=== PATIENT | female | born 1995 | race Caucasian/White ===

== ENCOUNTER → 2017-03-01 | Outpatient (CLI) | payer OTHER ==
[2017-03-01 17:08] LABS: BASO % 0.4 %; BASO ABS # 0.04 K/uL (0-0.2); COMPLETE YES; EOS % 1.1 %; HEMATOCRIT 40.6 % (37-47); IG% 0.2 %; LYMPH % 37.4 %; LYMPH ABS # 3.78 K/uL (1.2-3.4); MEAN CELL VOLUME 83.4 fL (80-100); MEAN CORPUSCULAR HEMOGLOBIN 27.7 pg (25-34); MEAN CORPUSCULAR HGB CONC 33.3 g/dl (32-36); MEAN PLATELET VOLUME 10.9 fL (7.4-10.4); MONO % 8.3 %; NEUT % 52.6 %; PLATELET COUNT 349 K/uL (130-400); RED BLOOD COUNT 4.87 M/uL (4.2-5.4); WHITE BLOOD COUNT 10.12 K/uL (4.8-10.8)
[2017-03-01 17:09] LABS: PREG INTERNAL NEGATIVE QC NEG CLEAR BACKGROUND; PREG INTERNAL POSITIVE QC POS CONTROL LINE
[2017-03-01 17:24] LABS: ALT/SGPT 24 U/L (12-78); BLOOD UREA NITROGEN 12 mg/dl (7-18); BUN/CREATININE RATIO 15.1 (10-20); CALCIUM 9.2 mg/dl (8.5-10.1); CARBON DIOXIDE 25 mmol/L (21-32); CHLORIDE 105 mmol/L (98-107); CREATININE 0.81 mg/dl (0.60-1.20); GLUCOSE 81 mg/dl (70-99); POTASSIUM 4.2 mmol/L (3.5-5.1); SODIUM 139 mmol/L (136-145)
[2017-03-01 17:27] LABS: ALB/GLOB RATIO 0.8 (0.9-2); ALKALINE PHOSPHATASE 69 U/L (45-117); AST/SGOT 17 U/L (15-37)
== END | disposition home or self-care (01) ==
LOC: C.LABBC 15:22
PROVIDERS: ATTEND Physician Assistant
DX: R10.32 Left lower quadrant pain (principal)

== ENCOUNTER → 2017-03-03 | Outpatient (CLI) | payer OTHER ==
[~2017-03-03] MED LIST: OPTIRAY 320 IV PRN
--- NOTE | 2017-03-03 14:59 | DIAGNOSTIC IMAGING REPORT ---
ABDOMEN AND PELVIS CT WITH IV AND ORAL CONTRAST CT DOSE: 327.78 mGy.cm HISTORY: R10.32 Abdominal pain, LLQ (left lower quadrant) TECHNIQUE: Multiaxial CT images of the abdomen and pelvis were performed following the use of intravenous and oral contrast. A dose lowering technique was utilized adhering to the principles of ALARA. COMPARISON STUDY: None. FINDINGS: The lung bases are clear. The liver, spleen, gallbladder, pancreas, kidneys, and adrenal glands are within normal limits. No bowel wall thickening or obstruction. The pelvic organs are unremarkable. No suspicious lytic or blastic osseous lesions. The visualized appendix is unremarkable. A tampon is identified within the vagina. IMPRESSION: No significant abnormality identified within the abdomen or pelvis. Electronically signed by: Anuj Kenny M.D. 03/03/2017 2:58 PM Dictated Date/Time: 03/03/2017 2:49 PM
== END | disposition home or self-care (01) ==
LOC: C.CTS 14:05
PROVIDERS: ATTEND Physician Assistant
DX: R10.32 Left lower quadrant pain (principal)